=== PATIENT | female | born 1990 | race Two or more races ===

== ENCOUNTER 2018-01-22 19:05 | Emergency (ER) | payer BC ==
[~2018-01-22] VITALS: Ht 167.6 cm; Wt 70.8 kg
[2018-01-22 19:15] VITALS: BP 130/89
== END 2018-01-22 23:03 | disposition left against medical advice (07) ==
LOC: ER 19:05
DX: M79.671 Pain in right foot (principal); M79.674 Pain in right toe(s); Z53.21 Procedure and treatment not carried out due to patient leaving prior to being seen by health care provider
CPT/HCPCS: 73660; 81025